=== PATIENT | male | born 2005 | race Two or more races ===

== ENCOUNTER 2024-08-24 22:45 | Emergency (ER) | payer OTHER ==
[~2024-08-24] VITALS: Ht 182.9 cm; Wt 88.5 kg
[2024-08-25] MEDS ORDERED: KETOROLAC TROMETHAMINE 60 MG VIAL IM ONE (00:15)
== END 2024-08-25 02:19 | disposition home or self-care (01) ==
LOC: ER 22:46
DX: S20.219A Contusion of unspecified front wall of thorax, initial encounter (principal); S51.009A Unspecified open wound of unspecified elbow, initial encounter; W10.8XXA Fall (on) (from) other stairs and steps, initial encounter; Y93.89 Activity, other specified; Y92.89 Other specified places as the place of occurrence of the external cause; Y99.8 Other external cause status
CPT/HCPCS: 71111; 73070; 96372; 99283; J1885